=== PATIENT | female | born 1975 | race Caucasian/White ===

== ENCOUNTER 2018-04-27 20:28 | Emergency (ER) | payer OTHER ==
[2018-04-27 21:16] LABS: ABSOLUTE BASOPHILS # (AUTO) 0.1 10^3/uL (0.0-0.2); ABSOLUTE EOSINOPHILS # (AUTO) 0.1 10^3/uL (0.0-0.6); ABSOLUTE LYMPHOCYTES (AUTO) 3.7 10^3/uL (0.5-4.7); ABSOLUTE MONOCYTES (AUTO) 0.7 10^3/uL (0.1-1.4); ABSOLUTE NEUT (AUTO) 9.8 10^3/uL (1.7-8.2); BASOPHILS % (AUTO) 0.5 % (0-2); EOSINOPHILS % (AUTO) 0.4 % (0-6); HEMATOCRIT 39.7 % (36.0-47.0); HEMOGLOBIN 13.5 g/dL (12.0-15.5); MEAN CORPUSCULAR HEMOGLOBIN 31.1 pg (27.0-33.4); MEAN CORPUSCULAR HGB CONC 34.1 g/dL (32.0-36.0); MEAN CORPUSCULAR VOLUME 91 fl (80-97); MONOCYTES % (AUTO) 4.8 % (3-13); PLATELET COUNT 286 10^3/uL (150-450); RED BLOOD COUNT 4.35 10^6/uL (3.72-5.28); RED CELL DISTRIBUTION WIDTH 12.9 % (11.5-14.0); SEGMENTED NEUTROPHILS % (AUTO) 68.3 % (42-78); TOTAL CELLS COUNTED % (AUTO) 100 %; WHITE BLOOD COUNT 14.3 10^3/uL (4.0-10.5)
[2018-04-27 21:20] LABS: ALANINE AMINOTRANSFERASE 9 U/L (9-52); ALBUMIN 4.4 g/dL (3.5-5.0); ALKALINE PHOSPHATASE 105 U/L (38-126); ASPARTATE AMINO TRANSFERASE 32 U/L (14-36); BILIRUBIN,DIRECT 0.3 mg/dL (0.0-0.4); BILIRUBIN,TOTAL 0.4 mg/dL (0.2-1.3); BLOOD UREA NITROGEN 4 mg/dL (7-20); CALCIUM 9.1 mg/dL (8.4-10.2); GLUCOSE 155 mg/dL (75-110); POTASSIUM 3.4 mmol/L (3.6-5.0); TOTAL PROTEIN 8.3 g/dL (6.3-8.2)
[2018-04-27 21:25] LABS: CARBON DIOXIDE 16 mmol/L (22-30); CHLORIDE 106 mmol/L (98-107); SODIUM 142.9 mmol/L (137-145)
[2018-04-27 21:28] LABS: ALCOHOL < 10 mg/dL (NONE DETECTED)
[2018-04-27 21:29] LABS: ANION GAP 21 (5-19)
[2018-04-27] MEDS ORDERED: NORMAL SALINE 1000 ML 1,000 ML IV ONE (21:29)
[2018-04-27] MEDS ORDERED: METOCLOPRAMIDE HCL INJ/PF 10 MG/2 ML SDV IV ONE (21:30)
--- NOTE | 2018-04-27 21:32 | ER Document Report ---
ED General - General Chief Complaint: Probable Seizure Stated Complaint: PROBABLE SEIZURE Time Seen by Provider: 04/27/18 21:06 Notes: Patient is a 42-year-old female with a past medical history of chronic migraines who presents after having a syncopal episode with associated tonic activity during that episode. Patient reports that they drove from [place] to [place] and then to [place] over the past 48 hours. She states all day today she felt shaky and lightheaded. She notes that each time she would get out of the vehicle she felt unsteady like she was about to pass out. She states that for the at home today she continued to be dizzy and apparently had an episode in which she became acutely lightheaded and lost consciousness striking her head on a table. Her witnessed this episode and states that she was "clenching her buttock cheeks, and had stiffened her arms but would intermittently try to talk to me and make eye contact". The episode lasted for approximately 1-2 minutes the patient was talking normally within 2- 3 minutes thereafter. She has no prior history of similar symptoms in the past. She denies any chest pain, shortness of breath, focal weakness or numbness, or headache either before or after the episode. She does however now complain of 1 of her typical migraine headaches but declines any treatment for it stating that this is very usual for her and that she gets a similar headache every day. She has not seen her general doctor regarding today's concerns. She denies any shortness of breath, chest pain, pleuritic pain, use of estrogen , or history of DVT or pulmonary embolus. TRAVEL OUTSIDE OF THE [place] IN LAST 30 DAYS: No - Related Data Allergies/Adverse Reactions: No Known Allergies Allergy (Verified 04/27/18 20:57) Past Medical History - General Information source: Patient, Relative - Social History Smoking Status: Never Smoker Frequency of alcohol use: None Drug Abuse: None Lives with: Spouse/Significant other Family History: Reviewed & Not Pertinent Patient has suicidal ideation: No Patient has homicidal ideation: No - Past Medical History Cardiac Medical History: Denies: Hx Coronary Artery Disease, Hx Heart Attack, Hx Hypertension Pulmonary Medical History: Denies: Hx Asthma, Hx Bronchitis, Hx COPD, Hx Pneumonia Neurological Medical History: Reports: Hx Migraine. Denies: Hx Cerebrovascular Accident, Hx Seizures Renal/ Medical History: Denies: Hx Peritoneal Dialysis Musculoskeletal Medical History: Denies Hx Arthritis Psychiatric Medical History: Reports: Hx Depression Past Surgical History: Reports: Hx Orthopedic Surgery. Denies: Hx Hysterectomy - HCG negative - Immunizations Hx Diphtheria, Pertussis, Tetanus Vaccination: Yes Review of Systems - Review of Systems Notes: Constitutional: Negative for fever. HENT: Negative for sore throat. Eyes: Negative for visual changes. Cardiovascular: Negative for chest pain. Positive for syncope Respiratory: Negative for shortness of breath. Gastrointestinal: Negative for abdominal pain, vomiting or diarrhea. Genitourinary: Negative for dysuria. Musculoskeletal: Negative for back pain. Skin: Negative for rash. Neurological: Positive for headache 10 point ROS negative except as marked above and in HPI. Physical Exam - Vital signs Vitals: Temp Pulse Resp BP Pulse Ox 98.7 F 116 H 17 136/83 H 99 04/27/18 20:39 04/27/18 20:39 04/27/18 20:39 04/27/18 20:39 04/27/18 20:39 Interpretation: Hypertensive, Tachycardic Notes: PHYSICAL EXAMINATION: GENERAL: Well-appearing, well-nourished and in no acute distress. HEAD: Mild bruising to the left forehead but otherwise atraumatic EYES: Pupils equal round and reactive to light, extraocular movements intact, sclera anicteric, conjunctiva are normal. ENT: nares patent, oropharynx clear without exudates. Moderately dry mucous membranes. NECK: Normal range of motion, supple without lymphadenopathy LUNGS: Breath sounds clear to auscultation bilaterally and equal. No wheezes rales or rhonchi. HEART: Regular tachycardia without murmurs ABDOMEN: Soft, nontender, normoactive bowel sounds. No guarding, no rebound. No masses appreciated. EXTREMITIES: Normal range of motion, no pitting or edema. No cyanosis. NEUROLOGICAL: Face symmetric. Tongue protrudes midline. Extraocular motions intact. Pupils are 2 mm and equally reactive. Normal speech, normal gait. 5 out of 5 strength in both the distal and proximal upper and lower extremities bilaterally. Sensation is grossly intact throughout. Finger to nose testing normal. Pronator drift normal. PSYCH: Normal mood, normal affect. SKIN: Warm, Dry, normal turgor, no rashes or lesions noted. Course - Re-evaluation Re-evalutation: 04/27/18 21:31 Presentation of syncope of unclear etiology however appears most consistent with orthostatic hypotension as the patient had been having positional lightheadedness and near syncope multiple times throughout the day today. Although the patient did have some jerking during her episode of syncope her clinical history is not consistent with a seizure as she did make eye contact during this episode and did not have a postictal state. Patient normotensive, alert, without focal neurologic deficits at time of arrival. Denies syncope was during exertion. No preceding symptoms of palpitations, chest pain, or shortness of breath. Patient asymptomatic at time of arrival. EKG is without evidence of HCOM, right heart strain, ST changes to suggest ischemia, prolong QTc, delta wave, epsilon wave, or Brugada syndrome. Patient denies any family history of sudden cardiac , personal history of of structural heart disease. On exam, no murmurs to suggest critical aortic stenosis as possible etiology. CT the head was obtained this patient did strike her head on the corner of a table when she fell today. That is noted to be normal. 04/28/18 00:42 Patient has continued to have persistent tachycardia that did not resolve despite receiving 1.5 L of fluid or 5 mg of intravenous diazepam. I am increasing concerned about the possibility of a pulmonary embolus as the patient was on a prolonged car ride from [place] to [place] and back to [place] over the last 48 hours. He does not have any unilateral leg swelling but given her persistent tachycardia and syncope today a d-dimer was sent. Unfortunately this d-dimer is positive at 0.66. The patient's heart rate is currently 120 bpm. Will proceed with CTA of the chest. 04/28/18 02:22 CTA is normal without any evidence of an acute pulmonary embolus. Patient's laboratories do show a bicarb of 16 at time of admission the emergency department consistent with significant dehydration. She has received 1.5 L of fluid at this time and will receive an additional 1 L. She will also receive haloperidol as she has developed one of her typical migraine headaches with associated nausea. I have offered admission to the hospital given her syncope with persistent tachycardia but she has declined stating she would like to go home. She will follow-up with cardiology tomorrow or the next day per her and the family's plan. At this time will discharge with return precautions and follow-up recommendations. Verbal discharge instructions given a the bedside and opportunity for questions given. Medication warnings reviewed. Patient is in agreement with this plan and has verbalized understanding of return precautions and the need for primary care follow-up in the next 24-72 hours. - Vital Signs Vital signs: Temp Pulse Resp BP Pulse Ox 98.7 F 116 H 22 H 136/83 H 99 04/27/18 20:39 04/27/18 20:39 04/27/18 20:51 04/27/18 20:51 04/27/18 20:51 - Laboratory Result Diagrams: 04/27/18 20:05 04/27/18 20:05 Laboratory results interpreted by me: 04/27/18 04/27/18 04/27/18 20:05 20:05 20:05 WBC 14.3 H Absolute Neutrophils 9.8 H D-Dimer 0.66 H Potassium 3.4 L Carbon Dioxide 16 L Anion Gap 21 H BUN 4 L Glucose 155 H Total Protein 8.3 H - Diagnostic Test Radiology reviewed: Image reviewed, Reports reviewed Radiology results interpreted by me: 04/27/18 22:41 CT head: No acute intracranial bleed or mass - EKG Interpretation by Me Additional EKG results interpreted by me: 04/28/18 03:47 Sinus tachycardia. Rate 107. No ST elevations or depressions. QTC 470. Discharge - Discharge Clinical Impression: Sinus tachycardia Syncope Qualifiers: Syncope type: unspecified Qualified Code(s): R55 - Syncope and collapse Head trauma Qualifiers: Encounter type: initial encounter Qualified Code(s): S09.90XA - Unspecified injury of head, initial encounter Condition: Good Disposition: HOME, SELF-CARE Additional Instructions: You were seen today after an episode of passing out. Your EKG here is normal. CT scan of your chest does not show any evidence of blood clot. Your heart rate did remain persistently elevated and this could be part of the reason that you had an episode of passing out today. You have declined admission to the hospital. It is critical that you follow-up with cardiology within the next 24- 48 hours. He should return to the emergency department immediately if you develop chest pain, shortness of breath, weakness, or pass out again. You have likely sustained a contusion (bruise) to your head. If you had a CT scan done, it did not show any evidence of serious injury or bleeding. Symptoms to expect from a concussion include nausea, mild to moderate headache, difficulty concentrating or sleeping, and mild lightheadedness. These symptoms should improve over the next few days to weeks. Return to the emergency department or follow-up with your primary care doctor if your symptoms are not improving over this time. Signs of a more serious head injury include vomiting , severe headache, excessive sleepiness or confusion, and weakness or numbness in your face, arms or legs. Return immediately to the Emergency Department if you experience any of these more concerning symptoms. Rest, avoid strenuous physical or mental activity, and avoid activities that could potentially result in another head injury until all your symptoms from this head injury are completely resolved for at least 2-3 weeks. If you participate in sports, get cleared by your doctor or senior technical trainer before returning to play. You may take ibuprofen or acetaminophen over the counter according to label instructions for mild headache or scalp soreness. Referrals: CHRIS NORTON MD [ACTIVE STAFF] - Follow up tomorrow
--- NOTE | 2018-04-27 22:11 | RADIOLOGY REPORT (SQ) ---
EXAM DESCRIPTION: CT HEAD WITHOUT COMPLETED DATE/TIME: 04/27/2018 9:51 pm REASON FOR STUDY: head trauma COMPARISON: None. TECHNIQUE: Axial images acquired through the brain without intravenous contrast. Images reviewed wi th bone, brain and subdural windows. Images stored on PACS. All CT scanners at this facility use dose modulation, iterative reconstruction, and/or weight based d osing when appropriate to reduce radiation dose to as low as reasonably achievable (ALARA). [facility]: Dose Right [facility]: CareDose [facility]: Dose Right [facility]: Teradose 4D [facility]: Graceful Tables RADIATION DOSE: CT Rad equipment meets quality standard of care and radiation dose reduction techniq ues were employed. CTDIvol: 53.2 mGy. DLP: 991 mGy-cm. mGy. LIMITATIONS: None. FINDINGS: VENTRICLES: Normal size and contour. CEREBRUM: No masses. No hemorrhage. No midline shift. No evidence for acute infarction. Normal gra y/white matter differentiation. No areas of low density in the white matter. CEREBELLUM: No masses. No hemorrhage. No alteration of density. No evidence for acute infarction. EXTRAAXIAL SPACES: No fluid collections. No masses. ORBITS AND GLOBE: No intra- or extraconal masses. Normal contour of globe without masses. CALVARIUM: No fracture. PARANASAL SINUSES: No fluid or mucosal thickening. SOFT TISSUES: No mass or hematoma. OTHER: No other significant finding. IMPRESSION: No acute intracranial findings. EVIDENCE OF ACUTE STROKE: NO. COMMENT: Quality ID # [id number]: Final reports with documentation of one or more dose reduction techniques (e.g., Automated exposure control, adjustment of the mA and/or kV according to patient size, use of iterative reconstruction technique) TECHNICAL DOCUMENTATION: JOB ID: [id number] [place]-72 2010 [employer]- All Rights Reserved Reading location - IP/workstation name: [email or web address]
[2018-04-27] MEDS ORDERED: RINGERS SOLUTION,LACTATED 1,000 ML IV ONE (23:44)
[2018-04-27] MEDS ORDERED: DIAZEPAM INJ 10 MG/2 ML DISP.SYRIN IV ONE (23:44)
[2018-04-27] MEDS ORDERED: DIAZEPAM INJ 10 MG/2 ML DISP.SYRIN ONE (23:48)
--- NOTE | 2018-04-28 00:55 | EKG REPORT ---
SEVERITY:- ABNORMAL ECG - SINUS TACHYCARDIA INFERIOR INFARCT, OLD : Confirmed by: Yana Villaseñor MD 28-Apr-2018 00:54:24
--- NOTE | 2018-04-28 01:38 | RADIOLOGY REPORT (SQ) ---
EXAM DESCRIPTION: CT CHEST ANGIOGRAPHY WITHOUT THEN WITH IV CONTRAST COMPLETED DATE/TME: 04/28/2018 00:35 CLINICAL HISTORY: Syncope and tachycardia. COMPARISON: None Available. TECHNIQUE: CTA of the chest obtained following the uncomplicated intravenous administration of 100 mL Isovue-370. 3-D/MIP reformatted images of the chest available for evaluation. DLP: 545.98 mGycm FINDINGS: Chest: Pulmonary arteries: Contrast bolus is adequate.No filling defects identified in the pulmonary arteries to suggest pulmonary embolus. Thyroid:No abnormalities of the visualized thyroid. Great Vessels:Great vessels have normal anatomic configuration. Thoracic Aorta:No abnormalities of the thoracic aorta identified. Heart:No cardiomegaly, significant pericardial effusion, or coronary artery atherosclerosis Lymph Nodes:No enlarged mediastinal lymph nodes identified. Esophagus:No abnormalities of the esophagus identified. Other:No additional findings. Lungs:No alveolar or interstitial airspace opacities identified. Pleura:No pleural effusion or pneumothorax. Trachea/Airways:No abnormalities of the visualized trachea or airways. Bones:No destructive osseous lesions. Upper Abdomen:Limited images of the upper abdomen demonstrate no definite abnormalities of visualized portions of the liver, gallbladder, pancreas, spleen, adrenal glands, or kidneys. IMPRESSION: 1. No pulmonary embolus identified. This exam was performed according to our departmental dose-optimization program, which includes automated exposure control, adjustment of the mA and/or kV according to patient size and/or use of iterative reconstruction technique.
[2018-04-28 02:20] LABS: NT PRO BNP 107 pg/mL (<125)
[2018-04-28] MEDS ORDERED: METOPROLOL TARTRATE PF/INJ 5 MG/5 ML SDV IV ONE (02:22)
[2018-04-28] MEDS ORDERED: METOPROLOL TARTRATE 25 MG TABLET PO ONE (02:22)
[2018-04-28 02:23] LABS: TROPONIN I < 0.012 ng/mL
[2018-04-28] MEDS ORDERED: NORMAL SALINE 1000 ML 1,000 ML IV ONE (02:28)
[2018-04-28] MEDS ORDERED: HALOPERIDOL LACTATE INJ 5 MG/1 ML VIAL IV ONE (02:28)
[2018-04-28] MEDS ORDERED: ONDANSETRON ODT 4 MG TAB (6 TAB/ER DISP) PO PRN (03:20)
[2018-04-28 04:00] VITALS: BP 141/87
== END 2018-04-28 03:58 | disposition home or self-care (01) ==
LOC: ER 20:28
DX: R55 Syncope and collapse (principal); S09.90XA Unspecified injury of head, initial encounter; W19.XXXA Unspecified fall, initial encounter; W22.03XA Walked into furniture, initial encounter; Y92.009 Unspecified place in unspecified non-institutional (private) residence as the place of occurrence of the external cause; R00.0 Tachycardia, unspecified; G43.909 Migraine, unspecified, not intractable, without status migrainosus; R79.1 Abnormal coagulation profile; R11.0 Nausea
CPT/HCPCS: 93005; 99284; 36415; 80307; 83735; 84703; 85025; 80053; 84484; 85379; 83880; 70450; 71275; 93010; J3360; J1630; J7030